=== PATIENT | female | born 1980 | race Caucasian/White ===

== ENCOUNTER → 2017-11-11 | Outpatient (CLI) | payer OTHER ==
[2014-04-26 10:15] VITALS: BP 110/60
[~2017-11-11] MED LIST: FLEXERIL PO; IBUP200T77 PO; MIRENA; MULT1TAB52 PO
[2017-11-11 08:35] LABS: FREE T4 1.04 ng/dL (0.76-1.46); THYROID STIM HORMONE (TSH) 4.974 uIU/mL (0.358-3.74)
== END | disposition home or self-care (01) ==
LOC: LAB 07:15
PROVIDERS: ATTEND Nurse Practitioner Family
DX: E03.9 Hypothyroidism, unspecified (principal)
CPT/HCPCS: 36415; 84439; 84443

== ENCOUNTER → 2018-06-13 | Outpatient (CLI) | payer OTHER ==
[2014-04-26 10:15] VITALS: BP 110/60
[2018-06-13 16:19] LABS: FREE T4 1.11 ng/dL (0.76-1.46); THYROID STIM HORMONE (TSH) 0.953 uIU/mL (0.358-3.74)
[2018-06-23 13:11] LABS: CODFISH <0.10 kU/L (Class 0); CORN <0.10 kU/L (Class 0); EGG WHITE <0.10 kU/L (Class 0); MILK <0.10 kU/L (Class 0); PEANUT <0.10 kU/L (Class 0); SCALLOP <0.10 kU/L (Class 0); SHRIMP <0.10 kU/L (Class 0); SOYBEAN <0.10 kU/L (Class 0); WALNUT <0.10 kU/L (Class 0); WHEAT <0.10 kU/L (Class 0)
== END | disposition home or self-care (01) ==
LOC: LAB 14:58
PROVIDERS: ATTEND Nurse Practitioner Family
DX: E03.9 Hypothyroidism, unspecified (principal); J30.9 Allergic rhinitis, unspecified
CPT/HCPCS: 36415; 84439; 84443; 84481; 86001

== ENCOUNTER → 2018-12-19 | Outpatient (CLI) | payer OTHER ==
[2014-04-26 10:15] VITALS: BP 110/60
[2018-12-19 08:17] LABS: HEMATOCRIT 42.2 % (36.0-47.0); HEMOGLOBIN 14.2 g/dL (12.0-15.5); RED BLOOD COUNT 4.58 x10^6/uL (3.50-5.40); WHITE BLOOD COUNT 6.4 x10^3/uL (4.0-11.0)
[2018-12-19 08:32] LABS: ALBUMIN 3.7 g/dL (3.4-5.0); ALBUMIN/GLOBULIN RATIO 1.1 (1.0-1.7); CALCIUM 9.1 mg/dL (8.5-10.1); CREATININE 0.7 mg/dL (0.6-1.0); GFR 93.2; POTASSIUM 4.7 mmol/L (3.5-5.1); TOTAL BILIRUBIN 0.3 mg/dL (0.2-1.0); TOTAL PROTEIN 7.2 g/dL (6.4-8.2)
[2018-12-19 08:45] LABS: CHOLESTEROL/HDL RATIO 6.5
[2018-12-19 08:48] LABS: FREE T4 1.13 ng/dL (0.76-1.46); THYROID STIM HORMONE (TSH) 1.935 uIU/mL (0.358-3.74)
[2018-12-20 01:08] LABS: HEMOGLOBIN A1C 5.4 % (4.8-5.6)
== END | disposition home or self-care (01) ==
LOC: LAB 06:55
PROVIDERS: ATTEND Nurse Practitioner Family
DX: Z13.228 Encounter for screening for other metabolic disorders (principal); E03.9 Hypothyroidism, unspecified
CPT/HCPCS: 36415; 80053; 80061; 82306; 83036; 84439; 84443; 85027

== ENCOUNTER → 2019-08-06 | Outpatient (CLI) | payer OTHER ==
[2014-04-26 10:15] VITALS: BP 110/60
[~2019-08-06] MED LIST changes: +MULT-445 PO; -MULT1TAB52 PO
--- NOTE | 2019-08-06 13:24 | RAD ---
EXAM: Left foot, 3 views. HISTORY: Pain. COMPARISON: None. FINDINGS: 3 views of the left foot are obtained. There is no fracture, dislocation or subluxation. There is a tiny plantar spur. IMPRESSION: No acute osseous finding. Electronically signed by: Fifi Tello MD (08/06/2019 1:21 PM) [id number]
== END | disposition home or self-care (01) ==
LOC: RAD 10:20
PROVIDERS: ATTEND Nurse Practitioner Family
DX: M77.52 Other enthesopathy of left foot and ankle (principal); M79.672 Pain in left foot
CPT/HCPCS: 73630

== ENCOUNTER → 2019-09-01 | Outpatient (CLI) | payer OTHER ==
[2014-04-26 10:15] VITALS: BP 110/60
--- NOTE | 2019-09-03 10:08 | SLEEP ---
DATE OF STUDY: 09/01/2019 HOME SLEEP STUDY STUDY REFERRED BY: Ana María Rivera, nurse practitioner. The patient is a 39-year-old who weighs 255 pounds with a BMI of 42.4. The patient's Santa Cruz score was 9. The patient underwent home sleep study performed at [facility]. Total recording time was 207 minutes. During the night study, the patient had 1 central apnea, 2 obstructive apneas, 5 mixed apneas and 15 hypopneas. The patient's AHI was 6.7 per hour. The patient had signs of upper airway resistance syndrome throughout the night, but were not scored. Nocturnal oximetry study revealed an average oxygen saturation of 93% with the lowest of 87%. 2.7 minutes were spent in oxygen saturation less than 90%. Mean heart rate 67 beats per minute with a maximum 101 beats per minute. IMPRESSION: 1. Mild obstructive sleep apnea at an AHI of 6.7 per hour. Severity of KRANTHI may have been underestimated on home sleep study as there were signs of upper airway resistance syndrome throughout the night. 2. No clinically significant nocturnal hypoxia. RECOMMENDATIONS: 1. The patient is clinically symptomatic with an Santa Cruz score of 9. Consider treatment of sleep apnea with either CPAP versus oral appliance. 2. Once the patient is treated, then follow up in 4-6 weeks to assess compliance and to document clinical improvement with treatment. 3. Weight loss is strongly advised. 4. Avoid SUPERVISOR NET MAKING depressants. 5. Cautioned regarding driving until symptoms of sleep apnea resolve with above recommendations. AALIYAH LATHAM MD DR: VALENCIA/blu JOB#: [id number] / [id number] ANA MARÍA Coughlin APRN
== END | disposition home or self-care (01) ==
LOC: RT 06:53
PROVIDERS: ATTEND Nurse Practitioner Family
DX: G47.33 Obstructive sleep apnea (adult) (pediatric) (principal)
CPT/HCPCS: G0399

== ENCOUNTER → 2019-10-26 | Outpatient (CLI) | payer OTHER ==
[2014-04-26 10:15] VITALS: BP 110/60
== END | disposition home or self-care (01) ==
LOC: LAB 08:16
PROVIDERS: ATTEND Internal Medicine Pulmonary Disease
DX: R53.81 Other malaise (principal); R09.81 Nasal congestion; Z20.828 Contact with and (suspected) exposure to other viral communicable diseases
CPT/HCPCS: U0003-CS

== ENCOUNTER → 2019-12-11 | Outpatient (CLI) | payer OTHER ==
[2014-04-26 10:15] VITALS: BP 110/60
[2019-12-11 08:22] LABS: BASO # 0.1 x10^3/uL (0.0-0.2); BASO % 1 % (0-3); EOS # 0.3 x10^3/uL (0.0-0.7); EOS % 4 % (0-3); HEMATOCRIT 41.3 % (36.0-47.0); HEMOGLOBIN 13.9 g/dL (12.0-15.5); LYMPH # 2.1 x10^3/uL (1.0-4.8); LYMPH % 30 % (24-48); MEAN CORPUSCULAR HEMOGLOBIN 31 pg (25-35); MEAN CORPUSCULAR HGB CONC 34 g/dL (31-37); MEAN CORPUSCULAR VOLUME 91 fL (79-100); MONO # 0.5 x10^3/uL (0.0-1.1); MONO % 7 % (0-9); NEUT % 58 % (31-73); PLATELET COUNT 319 x10^3/uL (140-400); RED BLOOD COUNT 4.56 x10^6/uL (3.50-5.40); RED CELL DISTRIBUTION WIDTH 12.9 % (11.5-14.5)
[2019-12-11 08:44] LABS: ALBUMIN 3.5 g/dL (3.4-5.0); ALBUMIN/GLOBULIN RATIO 1.1 (1.0-1.7); CALCIUM 8.8 mg/dL (8.5-10.1); CREATININE 0.7 mg/dL (0.6-1.0); GFR 92.7; POTASSIUM 4.3 mmol/L (3.5-5.1); TOTAL BILIRUBIN 0.3 mg/dL (0.2-1.0); TOTAL PROTEIN 6.8 g/dL (6.4-8.2)
[2019-12-11 08:54] LABS: FREE T4 1.2 ng/dL (0.76-1.46); THYROID STIM HORMONE (TSH) 1.81 uIU/mL (0.358-3.74)
[2019-12-11 09:00] LABS: CHOLESTEROL/HDL RATIO 5.7
[2019-12-11 20:09] LABS: FSH 8.9 mIU/mL (.); LUTEINIZING HORMONE 4.9 mIU/mL (.); PROGESTERONE 0.1 ng/mL (.); TESTOSTERONE TOTAL 16 ng/dL (8-48)
[2019-12-12 11:10] LABS: INSULIN LEVEL 18.3 uIU/mL (2.6-24.9)
[2019-12-13 23:09] LABS: ESTROGEN LEVEL 106 pg/mL (.)
== END ==
LOC: LAB 07:12
PROVIDERS: ATTEND Physician Assistant Medical
DX: Z00.00 Encounter for general adult medical examination without abnormal findings (principal); E34.9 Endocrine disorder, unspecified
CPT/HCPCS: 36415; 80053; 80061; 82626; 82672; 83001; 83002; 83525; 84144; 84403; 84439; 84443; 85025

== ENCOUNTER → 2019-12-15 | Outpatient (CLI) | payer OTHER ==
[2014-04-26 10:15] VITALS: BP 110/60
--- NOTE | 2019-12-15 16:15 | RAD ---
EXAM: Bilateral digital screening mammogram with tomosynthesis. HISTORY: 39-year-old female presents for screening mammography. TECHNIQUE: Full-field digital craniocaudal and mediolateral oblique 2D and 3D tomosynthesis images of both breasts are obtained for evaluation. Computer aided detection was applied. COMPARISON: None. This is baseline mammogram. BREAST PARENCHYMAL DENSITY: Level C - Heterogeneously dense. FINDINGS: There are small areas of nodularity within the 9:00 and 1:00 positions of the right breast at anterior to mid depth. There are additional areas of nodularity within both breasts which do not persist between projections or with tomosynthesis images, favoring benignity. There is no suspicious calcification or architectural distortion. IMPRESSION: BI-RADS Category 0: Incomplete. Additional imaging needed. RECOMMENDATION: Further evaluation with full field true lateral views of both breasts and spot compression views of nodularity within the right breast described above is recommended, given the absence of a prior study to confirm stability. Sonographic imaging can be performed if deemed indicated based on additional mammographic findings. If your mammogram demonstrates that you have dense breast tissue, which could hide abnormalities, and if you have other risk factors for breast cancer that have been identified, you might benefit from supplemental screening tests that may be suggested by your ordering physician. Dense breast tissue, in and of itself, is a relatively common condition. This information is not provided to cause undue concern, but rather to raise your awareness and to promote discussion with your physician regarding the presence of other risk factors, in addition to dense breast tissue. A report of your mammography results will be sent to you and your physician. You should contact your physician if you have any questions or concerns regarding this report. Mammography is a sensitive method for finding small breast cancers, but it does not detect them all and is not a substitute for careful clinical examination. A negative mammogram does not negate a clinically suspicious finding and should not result in delay in biopsying a clinically suspicious abnormality. PQRS compliance statement - Patient information was entered into a reminder system with a target due date for the next mammogram. "Our facility is accredited by the [employer] Mammography Program." Electronically signed by: Fifi Tello MD (12/15/2019 4:12 PM) [id number]
== END ==
LOC: MAMMO 15:23
PROVIDERS: ATTEND Physician Assistant Medical
DX: Z12.31 Encounter for screening mammogram for malignant neoplasm of breast (principal)
CPT/HCPCS: 77063; 77067

== ENCOUNTER → 2020-02-24 | Outpatient (CLI) | payer OTHER ==
[2014-04-26 10:15] VITALS: BP 110/60
[~2020-02-24] MED LIST changes: +DOCU-153 PO; +GABA300C18 PO; +LEVO100T5 PO; +TRAM50TA PO
--- NOTE | 2020-02-25 09:43 | RAD ---
DATE: 02/24/2020 12:32 PM EXAM: DIGITAL DIAGNOSTIC BILATERAL HISTORY: Screening recall for nodularity in the upper outer right breast and nodularity in both breasts. COMPARISON: Baseline mammogram of 12/15/2019 Right CC spot compression, right MLO spot compression, and full-field bilateral ML views were obtained with computer-aided detection review. FINDINGS: Breast Density: HETERO The breast parenchyma Is heterogeneously dense, which could reduce sensitivity of mammography. Breast parenchyma level C Benign nodular parenchymal pattern is confirmed on additional mammographic views bilaterally. No suspicious masses, microcalcifications or architectural distortion is present to suggest malignancy in either breast. The visualized axillae are unremarkable. IMPRESSION: No mammographic evidence of malignancy. BI-RADS CATEGORY: 2 BENIGN FINDING(S) RECOMMENDED FOLLOW-UP: 12M 12 MONTH FOLLOW-UP Annual screening mammography is recommended, unless clinically indicated sooner based on symptoms or change in physical exam. PQRS compliance statement: Patient information was entered into a reminder system with a target due date for the next mammogram. Mammography is a sensitive method for finding small breast cancers, but it does not detect them all and is not a substitute for careful clinical examination. A negative mammogram does not negate a clinically suspicious finding and should not result in delay in biopsying a clinically suspicious abnormality. "Our facility is accredited by the [employer] Mammography Program."
== END ==
LOC: MAMMO 12:28
PROVIDERS: ATTEND Physician Assistant Medical
DX: R92.8 Other abnormal and inconclusive findings on diagnostic imaging of breast (principal); N63.20 Unspecified lump in the left breast, unspecified quadrant; N63.10 Unspecified lump in the right breast, unspecified quadrant
CPT/HCPCS: 77066

== ENCOUNTER → 2020-03-30 | Outpatient (CLI) | payer OTHER ==
[2014-04-26 10:15] VITALS: BP 110/60
[~2020-03-30] MED LIST changes: -DOCU-153 PO; -GABA300C18 PO; -LEVO100T5 PO; -TRAM50TA PO
--- NOTE | 2020-03-31 11:21 | SLEEP ---
DATE OF STUDY: 03/30/2020 SLEEP STUDY REFERRING PHYSICIAN: Kim Roberto APRN. The patient is 39 years old who weighs 270 pounds with a BMI of 43. The patient had a home sleep study on 09/01/2019 and was found to have mild KRANTHI at an AHI of 6.7 per hour. There were signs of upper airway resistance syndrome. The patient was referred for in-lab CPAP titration study. During the night study, the patient spent 406 minutes in bed and slept for 380 minutes with a sleep efficiency of 94%. Sleep latency was 9 minutes. REM latency of 140 minutes. Sleep architecture showed normal stage 1 sleep, increased stage 2 sleep, increased slow wave and normal REM sleep. EKG monitoring revealed normal sinus rhythm, average heart rate 68 beats per minute. No significant PLM seen. The patient was started on CPAP at 5 cm water and titrated up to 7 cm water. At the final pressure, the patient slept for 119 minutes. The patient's AHI was reduced to 2 per hour and oxygen saturation remained above 90%. The patient used small size nasal pillows. The patient had lateral REM sleep on the final pressure. IMPRESSION: 1. Sleep apnea diagnosed by previous sleep study. 2. No clinically significant periodic limb movements. RECOMMENDATIONS: 1. CPAP at 7 cm water completely eliminated the patient's sleep apnea and should be used on a nightly basis. 2. Follow up in 4-6 weeks to assess compliance with CPAP and to document clinical improvement. 3. Weight loss is strongly advised. 4. Avoid COVERSTITCH ELASTIC ATTACHER depressants. 5. Cautioned regarding driving until symptoms of sleep apnea resolve with the use of CPAP. AALIYAH LATHAM MD DR: VALENCIA/blu JOB#: [id number] / [id number] KIM Zavala
== END ==
LOC: RT 19:11
PROVIDERS: ATTEND Physician Assistant Medical
DX: G47.30 Sleep apnea, unspecified (principal)
CPT/HCPCS: 95811

== ENCOUNTER 2020-06-16 06:03 | Observation (INO) | payer OTHER ==
[~2020-06-16] VITALS: Ht 165.1 cm; Wt 123.8 kg
[2020-06-16] VITALS (11 sets, daily range): BP systolic 111–137; BP diastolic 53–79
[~2020-06-16 06:03] MED LIST changes: +HYDROmorphone 2 MG/ML VIAL IVP PRN; +IV RINGERS,LACTATED 1000ML 1,000 ML IV SCH; +LEVO100T5 PO; +PROCHLORPERAZINE 10 MG/2 ML VIAL. IVP PRN; +fentaNYL PF VIAL 100 MCG/2 ML VIAL IVP PRN
[2020-06-16] MEDS ORDERED: DEXAMETHASONE SOD PHOS 4 MG/ML VIAL ONE (06:42)
[2020-06-16] MEDS ORDERED: PROPOFOL 10 MG/ML (20ML) VIAL. IV ONE (06:42)
[2020-06-16] MEDS ORDERED: LIDOCAINE 2% PF 5 ML VIAL. ONE (06:42)
[2020-06-16] MEDS ORDERED: ONDANSETRON PF 4 MG/2 ML VIAL. ONE (06:42)
[2020-06-16] MEDS ORDERED: ROCURONIUM 50 MG/5 ML VIAL. ONE ×2 (06:42→09:27)
[2020-06-16 07:01] LABS: BASO # 0.1 x10^3/uL (0.0-0.2); BASO % 1 % (0-3); EOS # 0.3 x10^3/uL (0.0-0.7); EOS % 4 % (0-3); LYMPH # 2.3 x10^3/uL (1.0-4.8); LYMPH % 27 % (24-48); MEAN CORPUSCULAR HEMOGLOBIN 31 pg (25-35); MEAN CORPUSCULAR HGB CONC 34 g/dL (31-37); MEAN CORPUSCULAR VOLUME 90 fL (79-100); MONO # 0.5 x10^3/uL (0.0-1.1); MONO % 6 % (0-9); NEUT # 5.2 x10^3/uL (1.8-7.7); NEUT % 62 % (31-73); PLATELET COUNT 324 x10^3/uL (140-400); RED BLOOD COUNT 4.56 x10^6/uL (3.50-5.40); RED CELL DISTRIBUTION WIDTH 13.2 % (11.5-14.5); WHITE BLOOD COUNT 8.3 x10^3/uL (4.0-11.0)
[2020-06-16] MEDS ORDERED: ESTROGENS, CONJ VAGINAL CREAM 30GM TUBE. ONE (07:29)
[2020-06-16] MEDS ORDERED: LIDOCAINE 1%/EPI 1:100,000 20 ML VIAL. ONE (07:29)
[2020-06-16] MEDS ORDERED: INDIGOTINDISULFONATE SODIUM 40 MG/5 ML AMPUL. ONE (07:29)
[2020-06-16] MEDS ORDERED: SURGICEL HEMOSTAT 4X8 EACH. ONE (07:29)
[2020-06-16] MEDS ORDERED: BUPIVACAINE-EPI 0.25% 30 ML VIAL KIT. ONE (07:29)
[2020-06-16] MEDS ORDERED: MIDAZOLAM HCL/PF 2 MG/2 ML VIAL. ONE (07:30)
[2020-06-16] MEDS ORDERED: fentaNYL PF VIAL 250 MCG/5 ML VIAL ONE (07:31)
[2020-06-16] MEDS ORDERED: NEOSTIGMINE METHYLSULFATE 5 MG/5 ML SYRINGE. ONE (10:30)
--- NOTE | 2020-06-16 10:41 | PDOC ---
BRIEF OPERATIVE NOTE Date: June 16, 2020 Pre-Op Diagnosis 1. Fibroids 2. Menorrhagia 3. Dysmenorrhea 4. ROV CYst Post-Op Diagnosis SAme Procedure Performed TLH & BSO via Da Leydi Robot Surgeon Dr. Moore House Cleaner Emergency Department Rn: Surya Anesthesia Type: General Blood Loss 50 ml Specimens Obtained cervix, uterus, shaye. fallopian tubes and ovaries Findings enlarged, fibroid uterus, ROV cyst 3 cm Complications none Operative Note see dictation DIALLO MOORE Jr, MD June 16, 2020 10:41
[2020-06-16] MEDS ORDERED: fentaNYL PF VIAL 100 MCG/2 ML VIAL ONE (10:42)
[2020-06-16] MEDS ORDERED: PROCHLORPERAZINE 10 MG/2 ML VIAL. ONE (10:42)
[2020-06-16] MEDS ORDERED: ZOLPIDEM 5 MG TABLET. PO PRN (10:45)
[2020-06-16] MEDS ORDERED: diphenhydrAMINE HCL 25 MG CAPSULE PO PRN (10:45)
[2020-06-16] MEDS ORDERED: ONDANSETRON PF 4 MG/2 ML VIAL. IV PRN (10:45)
[2020-06-16] MEDS ORDERED: 0.9 % SODIUM CHLORIDE 10 ML DISP.SYRIN. IV PRN (10:45)
[2020-06-16] MEDS ORDERED: CALCIUM CARBONATE 500 MG TAB.CHEW PO PRN (10:45)
[2020-06-16] MEDS ORDERED: PROCHLORPERAZINE 10 MG/2 ML VIAL. IV PRN (10:45)
[2020-06-16] MEDS ORDERED: DEXTROSE 50% 25 GM / 50ML DISP.SYRIN. IV PRN (10:45)
[2020-06-16] MEDS ORDERED: SIMETHICONE 80 MG TAB.CHEW PO PRN (10:45)
[2020-06-16] MEDS ORDERED: diphenhydrAMINE 50 MG/ML VIAL IV PRN (10:45)
[2020-06-16] MEDS ORDERED: SEVOFLURANE > 120 MINUTES. IH ONE (10:47)
[2020-06-16] MEDS ORDERED: GLYCOPYRROLATE 1 MG/5 ML VIAL. ONE (10:47)
[2020-06-16] MEDS: fentaNYL PF VIAL 100 MCG/2 ML VIAL IVP PRN ×2 (10:55→11:04)
[2020-06-16] MEDS: KETOROLAC 30 MG/ML VIAL. IV PRN ×3 (11:11→23:02)
[2020-06-16] MEDS ORDERED: MORPHINE SULFATE 2 MG/ML VIAL. ONE ×3 (11:21→12:08)
[2020-06-16] MEDS: MORPHINE SULFATE 2 MG/ML VIAL. IVP PRN ×6 (11:21→12:25)
--- NOTE | 2020-06-16 11:23 | OP ---
DATE OF SURGERY: 06/16/2020 PREOPERATIVE DIAGNOSES: 1. Fibroids. 2. Menorrhagia. 3. Dysmenorrhea. 4. Right ovarian cyst. POSTOPERATIVE DIAGNOSES: 1. Fibroids. 2. Menorrhagia. 3. Dysmenorrhea. 4. Right ovarian cyst. PROCEDURES: TLH and BSO via da Leydi robot. SURGEON: Dr. John Moore. BODY COMPONENT ENGINEER: Nicole. ANESTHESIA: GETA. ESTIMATED BLOOD LOSS: 50 mL. COMPLICATIONS: None. FINDINGS: A large fibroid uterus, right ovarian cyst 3 cm size. SUMMARY: A 39-year-old female who had a long history of fibroids and dysmenorrhea as well as a persistent right ovarian cyst that was unresponsive to medical treatment, requiring hysterectomy. She was counseled on the risks, benefits and expectations and voiced a clear understanding to the TLH and BSO via da Leydi robot. DESCRIPTION OF PROCEDURE: The patient was taken to surgery suite and placed in dorsal lithotomy position. She was prepped with Betadine solution for vaginal prep and ChloraPrep for abdominal prep. After adequate anesthesia, weighted speculum and curved Francisco were placed in usual fashion. The anterior lip of the cervix was grasped with a single tooth tenaculum. Then the AMITA intrauterine device was then placed. Single tooth tenaculum and weighted speculum were removed. Attention was now placed on the abdomen. A small transverse skin incision was made just above the umbilicus with a scalpel. The Veress needle was then placed through the supraumbilical incision site. The abdomen was insufflated up to 1-1/2 liters of CO2 gas. The Veress needle was then removed. The 8 mm camera trocar was placed. Camera was positioned. The uterus was enlarged with multiple fibroids. There was a right ovarian cyst about 3 cm size, 2 additional incisions were made in the left and right lower quadrant of the abdomen for 8 mm trocar site. An accessory port was placed in the left upper quadrant through which a 5 mm port was placed. The robot was then docked in normal fashion. I then proceeded to the console. With aid of the fenestrated bipolar cautery and vessel sealer, the right infundibulopelvic ligament was coagulated and dissected. The right round ligament was coagulated and dissected. The right broad ligament was ____ and dissected down to and including the right uterine artery. Bladder flap was created using blunt dissection along with the vessel sealer. Same process took place with left adnexa. Colpotomy was then performed with the spatula in which it occurred at the level of the vaginal ring. The cervix, uterus, bilateral fallopian tubes and ovaries were then removed in their entirety. The vaginal cuff was reapproximated using V-Loc suture in a running fashion. Suction irrigation was utilized to verify good hemostasis. A small amount of normal saline was left in the posterior cul-de-sac. The trocar was then removed under direct visualization. Robot was undocked. The four skin incisions were reapproximated using 4-0 Vicryl suture in a subcuticular manner. 0.25% Marcaine with epinephrine was injected at each incision site. Permanence of the vaginal packing was placed. The patient tolerated the procedure well and was taken to recovery room in stable condition. Sponge and needle count correct x3. GABY/SOLOMON/ADA DR: Anuja TID: [id number]
--- NOTE | 2020-06-16 12:45 | NUR ---
Patient arrived to floor per transport team in her bed. Patient awake alert. 4 sites with dressing dry and intact, foster to dd, clear urine. IV infusing
--- NOTE | 2020-06-16 13:20 | NUR ---
Patient requests pain med. States she takes tramadol 50mg q 4 hours at home for back pain. Call to Dr Moore. Informed of patient need for pain med and requests for tramadol. did not offer new orders. States to try B&O supp 1st. Patient then informed
[2020-06-16] MEDS: OPIUM/BELLADONNA 30/16.2MG SUPP.RECT. PR PRN (13:54)
[2020-06-16] MEDS: GABAPENTIN 300 MG CAPSULE. PO SCH ×2 (14:02→21:55)
[2020-06-16] MEDS: DOCUSATE SODIUM 100 MG CAPSULE. PO PRN (18:05)
[2020-06-16] MEDS: oxyCODONE/APAP 5/325 1 TAB TABLET PO PRN (19:57)
--- NOTE | 2020-06-16 19:57 | NUR ---
Patient requested only one Percocet for C/O Pain. One Percocet given for C/O pain to Patient.
[2020-06-17 02:54] VITALS: BP 93/45
[2020-06-17] MEDS: oxyCODONE/APAP 5/325 1 TAB TABLET PO PRN ×2 (02:55→10:40)
--- NOTE | 2020-06-17 02:55 | NUR ---
Patient requested only one Percocet. Pain med given per Patient request of 1 Percocet.
[2020-06-17] MEDS: KETOROLAC 30 MG/ML VIAL. IV PRN (05:08)
[2020-06-17] MEDS: GABAPENTIN 300 MG CAPSULE. PO SCH ×2 (05:52→14:07)
[2020-06-17] MEDS: OPIUM/BELLADONNA 30/16.2MG SUPP.RECT. PR PRN (05:53)
[2020-06-17 05:55] VITALS: BP 117/53
--- NOTE | 2020-06-17 06:07 | NUR ---
B&O suppository given per order for C/O spasms at 0553. Tao catheter discontinued at 0600 without any difficulty. Vaginal packing discontinued at 0600 without difficulty. Patient tolerated procedure without any C/O.
[2020-06-17 06:33] LABS: BASO # 0.1 x10^3/uL (0.0-0.2); BASO % 1 % (0-3); EOS # 0.1 x10^3/uL (0.0-0.7); EOS % 1 % (0-3); HEMATOCRIT 39.7 % (36.0-47.0); HEMOGLOBIN 13.1 g/dL (12.0-15.5); LYMPH # 2.4 x10^3/uL (1.0-4.8); LYMPH % 22 % (24-48); MEAN CORPUSCULAR HEMOGLOBIN 30 pg (25-35); MEAN CORPUSCULAR HGB CONC 33 g/dL (31-37); MEAN CORPUSCULAR VOLUME 92 fL (79-100); MONO # 0.8 x10^3/uL (0.0-1.1); MONO % 8 % (0-9); NEUT # 7.3 x10^3/uL (1.8-7.7); NEUT % 69 % (31-73); PLATELET COUNT 340 x10^3/uL (140-400); RED BLOOD COUNT 4.34 x10^6/uL (3.50-5.40); RED CELL DISTRIBUTION WIDTH 13.4 % (11.5-14.5); WHITE BLOOD COUNT 10.7 x10^3/uL (4.0-11.0)
[2020-06-17] MEDS: DOCUSATE SODIUM 100 MG CAPSULE. PO PRN (08:28)
[2020-06-17 10:27] VITALS: BP 98/58
--- NOTE | 2020-06-17 13:00 | PDOC ---
SURGICAL PROGRESS NOTE DATE: 06/17/20 TIME: 12:58 Subjective Pt. feeling well. Pain controlled. No complaints. She is ambulating, voiding and tolerating regular PO. Vital Signs Vital Signs Date Time Temp Pulse Resp B/P (MAP) Pulse Ox O2 Delivery O2 Flow Rate FiO2 06/17/20 10:40 20 Room Air 06/17/20 10:27 98.1 61 98/58 (71) 96 98.1 06/16/20 11:49 10. I&O Intake and Output 06/17/20 07:00 Intake Total 3445 ml Output Total 3875 ml Balance -430 ml Intake Oral 1320 ml IV Total 2125 ml Output Urine Total 3825 ml Estimated Blood Loss 50 ml PATIENT HAS A LUIS: No General: Alert, Oriented X3, Cooperative HEENT: Atraumatic Lungs: Clear to auscultation Heart: Regular rate Abdomen: Normal bowel sounds Extremities: No clubbing Skin: No rashes Neuro: Normal gait Psych/Mental Status: Mental status NL Labs Laboratory Tests Test 06/16/20 06:15 06/16/20 06:20 06/17/20 06:10 SARS-CoV-2 Antigen (Rapid) Negative (NEGATIVE) White Blood Count 8.3 x10^3/uL (4.0-11.0) 10.7 x10^3/uL (4.0-11.0) Red Blood Count 4.56 x10^6/uL (3.50-5.40) 4.34 x10^6/uL (3.50-5.40) Hemoglobin 14.0 g/dL (12.0-15.5) 13.1 g/dL (12.0-15.5) Hematocrit 41.0 % (36.0-47.0) 39.7 % (36.0-47.0) Mean Corpuscular Volume 90 fL (79-100) 92 fL (79-100) Mean Corpuscular Hemoglobin 31 pg (25-35) 30 pg (25-35) Mean Corpuscular Hemoglobin Concent 34 g/dL (31-37) 33 g/dL (31-37) Red Cell Distribution Width 13.2 % (11.5-14.5) 13.4 % (11.5-14.5) Platelet Count 324 x10^3/uL (140-400) 340 x10^3/uL (140-400) Neutrophils (%) (Auto) 62 % (31-73) 69 % (31-73) Lymphocytes (%) (Auto) 27 % (24-48) 22 % (24-48) Monocytes (%) (Auto) 6 % (0-9) 8 % (0-9) Eosinophils (%) (Auto) 4 % (0-3) 1 % (0-3) Basophils (%) (Auto) 1 % (0-3) 1 % (0-3) Neutrophils # (Auto) 5.2 x10^3/uL (1.8-7.7) 7.3 x10^3/uL (1.8-7.7) Lymphocytes # (Auto) 2.3 x10^3/uL (1.0-4.8) 2.4 x10^3/uL (1.0-4.8) Monocytes # (Auto) 0.5 x10^3/uL (0.0-1.1) 0.8 x10^3/uL (0.0-1.1) Eosinophils # (Auto) 0.3 x10^3/uL (0.0-0.7) 0.1 x10^3/uL (0.0-0.7) Basophils # (Auto) 0.1 x10^3/uL (0.0-0.2) 0.1 x10^3/uL (0.0-0.2) Laboratory Tests Test 06/17/20 06:10 White Blood Count 10.7 x10^3/uL (4.0-11.0) Red Blood Count 4.34 x10^6/uL (3.50-5.40) Hemoglobin 13.1 g/dL (12.0-15.5) Hematocrit 39.7 % (36.0-47.0) Mean Corpuscular Volume 92 fL (79-100) Mean Corpuscular Hemoglobin 30 pg (25-35) Mean Corpuscular Hemoglobin Concent 33 g/dL (31-37) Red Cell Distribution Width 13.4 % (11.5-14.5) Platelet Count 340 x10^3/uL (140-400) Neutrophils (%) (Auto) 69 % (31-73) Lymphocytes (%) (Auto) 22 % (24-48) Monocytes (%) (Auto) 8 % (0-9) Eosinophils (%) (Auto) 1 % (0-3) Basophils (%) (Auto) 1 % (0-3) Neutrophils # (Auto) 7.3 x10^3/uL (1.8-7.7) Lymphocytes # (Auto) 2.4 x10^3/uL (1.0-4.8) Monocytes # (Auto) 0.8 x10^3/uL (0.0-1.1) Eosinophils # (Auto) 0.1 x10^3/uL (0.0-0.7) Basophils # (Auto) 0.1 x10^3/uL (0.0-0.2) Assessment/Plan A: POD#1 s/p TLH & BSO P: D/c home. Justicifation of Admission Dx: Justifications for Admission: Justification of Admission Dx: Yes DIALLO LORA Jr, MD June 17, 2020 12:59
[2020-06-17] MEDS ORDERED: IBUP200T77 PO (13:05)
[2020-06-17] MEDS ORDERED: GABA300C18 PO (13:05)
[2020-06-17] MEDS ORDERED: DOCU-153 PO (13:05)
[2020-06-17] MEDS ORDERED: TRAM50TA PO (13:05)
--- NOTE | 2020-06-17 13:07 | DISCH ---
DISCHARGE INSTRUCTIONS Condition on Discharge Condition on Discharge: Stable Activity After Discharge Activity Instructions for Disc: Progressive ambulation Lifting Instructions after Dis: No heavy lifting Exercise Instruction after Dis: Progress as tolerated Driving Instructions after Dis: No driving for 2 weeks Diet after Discharge Diet after Discharge: Regular Wound Incision Care Wound/Incision Care: Ice to area for comfort, May get incision wet Contacting the DRNicko after DC Call your doctor for: If your condition worsens Follow-Up Follow up with: Dr. Moore in 2 wks DIALLO MOORE Jr, MD June 17, 2020 13:07
[2020-06-17 14:45] VITALS: BP 125/73
--- NOTE | 2020-06-17 15:23 | NUR ---
Pt discharged home in stable condition post robotic total hysterectomy with BSO. VS.WNL. homecare, meds, RX and foloow up appt insturctions reviewed and given to pt. Pt was escorted to exit accompanied per RN and pt's mother.
--- NOTE | 2020-06-21 14:21 | PATHOLOGY ---
[facility] Accession Number: [id number] . 01 Material submitted: . uterus - CERVIX, UTERUS, BILATERAL FALLOPIAN TUBES, AND OVARIES. Modifiers: CERVIX, BILATERAL FALLOPIAN TUBES, OVARIES . 01 Clinical history: . PRE-OP DX: FIBROIDS, MENORHAGIA, DYSMENNORHIA, AND ROV CYST PROCEDURE: LAP ROBOT TOTAL HYSTERECTOMY WITH BSO . 02 Diagnosis: Uterus and attached bilateral fallopian tubes and ovaries, robotic-assisted laparoscopic total hysterectomy with bilateral salpingo-oophorectomy: - Chronic cervicitis with focal squamous metaplasia. - Nabothian cysts, cervix, few. - Stenotic endometrial cavity with attenuated endometrium showing focal mild acute and chronic inflammation. - Cystic adenomyosis, uterine corpus, focal. - Congestion of bilateral fallopian tubes. - Focally hemorrhagic luteum and cystic follicles with regressive changes of right ovary. - Left ovary showing no significant pathologic abnormalities. (JPM:mml; 06/17/2020) [facility] 06/20/2020 1323 Local . 02 Comment: There are no leiomyomas identified. There is no atypia or evidence of malignancy. (JPM:mml; 06/17/2020) . 02 Electronically signed: . Mario Galan MD, Pathologist NPI- [id number] . 01 Gross description: . Fixative: Formalin Labeled: Uterus, cervix, bilateral tubes, ovaries Specimen received: Intact hysterectomy with attached bilateral adnexa Uterus weight: 92 g Uterus: 8.4 cm from fundus to cervix, 5.5 cm from cornu to cornu, 4.4 cm from anterior to posterior cm Serosa: [place]-reyes and smooth with a surgical defect in the fundus measuring 1.0 x 0.5 cm Ectocervix: [place]-reyes and glistening Cervical os: Ovoid, measuring 0.9 x 0.6 cm Endocervical canal: 2.0 x 0.7 cm Endometrial cavity: 3.5 x 0.6 cm The endometrial cavity is stellate and fibrotic, possibly consistent with prior ablation procedure. Endometrial thickness: Scant, less than 0.1 cm Myometrial thickness: 2.0 cm Lesions/abnormalities: Cystic areas filled with hemorrhagic material are identified within the endometrial cavity/cornua (also possibly consistent with ablation procedure) Right fallopian tube: 3.5 cm in length, 1.0 cm in diameter, with fimbria Right fallopian tube appearance: Red-purple and smooth and sectioned to reveal a pinpoint lumen The right mesosalpinx displays a cylindrical reyes-white rubbery surgical sterilization object measuring 0.5 cm in diameter and 0.3 cm in length. The left mesosalpinx does not display a similar object. Left fallopian tube: 3.6 cm in length, 1.2 cm in diameter, with fimbria Left fallopian tube appearance: Red-purple and smooth and sectioned to reveal a pinpoint lumen Right ovary: 5 g, 3.0 x 1.8 x 1.6 cm Right ovary appearance: Reyes-pink and cerebriform and sectioned to reveal a serous cyst measuring 0.6 cm, a hemorrhagic cyst measuring 0.8 cm, and a hemorrhagic corpus luteum measuring 1.0 cm Left ovary: 3 g, 2.6 x 2.0 x 1.2 cm Left ovary appearance: Reyes-pink and cerebriform and sectioned to reveal a 0.4 cm corpus luteum and no abnormalities . Career Coach sections are submitted as follows: A1 12:00 cervix A2 6:00 cervix A3 anterior endomyometrium A4 posterior endomyometrium A5 right fallopian tube A6 left fallopian tube A7 right ovary A8 left ovary [place]16[place] A9-A10 additional anterior endometrium A11-A12 additional posterior endometrium [place]18/2020[place] [facility] 06/18/2020 0831 Local . 02 Pathologist provided ICD-10: N72, N88.8, N80.8, N92.0 . 02 CPT . 748314 Specimen Comment: A courtesy copy of this report has been sent to [phone], [phone] Specimen Comment: [id number], Specimen Comment: Report sent to ,DR CHAMBERS / DR WOODSON Performed at: 01 [facility] [id number] [address] [id number] MD Edin Ho MD Phone: [phone] Performed at: [facility] [address] [place], [place] [id number] MD Mario Galan MD Phone: [phone]
== END 2020-06-17 16:16 | disposition home or self-care (01) ==
LOC: SURG 06:03 → 3 SO LND 10:41
PROVIDERS: ADMIT Obstetrics & Gynecology; ATTEND Obstetrics & Gynecology
DX: D25.9 Leiomyoma of uterus, unspecified (principal); Z20.822 Contact with and (suspected) exposure to COVID-19; N92.0 Excessive and frequent menstruation with regular cycle; N94.6 Dysmenorrhea, unspecified; N83.201 Unspecified ovarian cyst, right side
CPT/HCPCS: 36415; 58571; 85025; 86850; 86900; 86901; 87426; 88307; 96374; 96376; A4213; A4270; A4314; A4930; A6219; G0378; G0379; J0690; J1100; J1885; J2250; J2270; J2405; J2704; J2710; J3010; J3490; S2900; A4223; A4322; A4657; J0780

== ENCOUNTER → 2021-01-02 | Outpatient (CLI) | payer OTHER ==
[~2021-01-02] MED LIST changes: +DOCU-148 PO; +GABA300C18 PO; -HYDROmorphone 2 MG/ML VIAL IVP PRN; -IV RINGERS,LACTATED 1000ML 1,000 ML IV SCH; -PROCHLORPERAZINE 10 MG/2 ML VIAL. IVP PRN; +TRAM50TA PO; -fentaNYL PF VIAL 100 MCG/2 ML VIAL IVP PRN
[2021-01-02 09:15] LABS: BASO # 0.1 x10^3/uL (0.0-0.2); BASO % 1 % (0-3); EOS # 0.2 x10^3/uL (0.0-0.7); EOS % 3 % (0-3); HEMATOCRIT 41.6 % (36.0-47.0); HEMOGLOBIN 13.7 g/dL (12.0-15.5); LYMPH % 32 % (24-48); MEAN CORPUSCULAR HEMOGLOBIN 30 pg (25-35); MEAN CORPUSCULAR HGB CONC 33 g/dL (31-37); MEAN CORPUSCULAR VOLUME 91 fL (79-100); MONO # 0.4 x10^3/uL (0.0-1.1); MONO % 6 % (0-9); NEUT # 3.7 x10^3/uL (1.8-7.7); NEUT % 58 % (31-73); PLATELET COUNT 306 x10^3/uL (140-400); RED BLOOD COUNT 4.59 x10^6/uL (3.50-5.40); RED CELL DISTRIBUTION WIDTH 13.7 % (11.5-14.5); WHITE BLOOD COUNT 6.3 x10^3/uL (4.0-11.0)
[2021-01-02 09:32] LABS: ALBUMIN 3.5 g/dL (3.4-5.0); CALCIUM 8.5 mg/dL (8.5-10.1); CREATININE 0.8 mg/dL (0.6-1.0); POTASSIUM 3.8 mmol/L (3.5-5.1); TOTAL BILIRUBIN 0.5 mg/dL (0.2-1.0)
[2021-01-02 09:34] LABS: CHOLESTEROL/HDL RATIO 5.4
[2021-01-02 09:45] LABS: BILIRUBIN,URINE NEGATIVE (NEG); CLARITY,URINE CLEAR; COLOR,URINE YELLOW; NITRITE,URINE NEGATIVE (NEG); PROTEIN,URINE NEGATIVE (NEG-TRACE); UROBILINOGEN,URINE 0.2 mg/dL (0.2 mg/dL)
[2021-01-02 10:58] LABS: BACTERIA,URINE MODERATE /HPF (0-FEW); RBC,URINE 0 /HPF (0-2)
[2021-01-02 11:12] LABS: THYROID STIM HORMONE (TSH) 2.512 uIU/mL (0.358-3.74)
[2021-01-02 13:15] LABS: FREE T4 1.12 ng/dL (0.76-1.46)
== END ==
LOC: LAB 08:09
PROVIDERS: ATTEND Physician Assistant Medical
DX: E03.9 Hypothyroidism, unspecified (principal); R63.5 Abnormal weight gain
CPT/HCPCS: 36415; 80053; 80061; 81001; 84439; 84443; 85025; 87086